=== PATIENT | male | born 1940 | race African-American/Black ===

== ENCOUNTER 2023-03-05 12:18 | Inpatient (IN) | payer MEDICARE ==
[2023-03-05 13:20] LABS: #Eosinphils 0.1 10x3/uL (0.0-0.5); #Monocytes 0.7 10x3/uL (0.0-1.1); #Neutrophils 3.1 10x3/uL (1.5-8.4); %Basophils 0.4 % (0.0-2.0); %Eosinophils 2.6 % (0.0-6.0); %Lymphocytes 24.6 % (18.0-47.0); %Monocytes 13.9 % (0.0-10.0); %Neutrophils 58.1 % (40.0-75.0); Hematocrit 29.5 % (38.8-50.0); Hemoglobin 9.2 g/dL (13.5-17.5); Mean Corpuscular HGB CONC 31.2 g/dL (32.0-36.0); Mean Corpuscular Hemoglobin 22.9 pg (27.0-33.0); Mean Corpuscular Volume 73.4 fl (81.2-95.1); Platelet Count 249 10x3/uL (150-450); Red Blood Cell (RBC) Count 4.02 10x6/uL (4.32-5.72); White Blood Cell (WBC) Count 5.3 10x3/uL (3.5-10.5)
[2023-03-05 13:40] LABS: ALT (SGPT) 7 U/L (8-55); AST (SGOT) 17 U/L (5-34); Albumin 2.6 g/dL (3.4-4.8); Alkaline Phosphatase 79 U/L (40-110); Anion Gap 11 mmol/L (10-20); BUN (Urea Nitrogen) 6 mg/dL (8.4-25.7); Bilirubin, Total 0.3 mg/dL (0.2-1.2); Calc. Creatinine Clearance 0 mL/min (70-130); Calcium 8.3 mg/dL (7.8-10.44); Carbon Dioxide 27 mmol/L (23-31); Chloride 98 mmol/L (98-107); Estimated GFR 89; Globulin 5.4 g/dL (2.4-3.5); Glucose 182 mg/dL (83-110); Magnesium 1.4 mg/dL (1.6-2.6); Potassium 3.4 mmol/L (3.5-5.1); Sodium 133 mmol/L (136-145)
[2023-03-05 13:47] LABS: Troponin I 0.013 ng/mL (< 0.028)
[2023-03-05 14:58] LABS: Microcytosis MODERATE=15-30 cells (100X) (0-5/hpf)
[2023-03-05] MEDS ORDERED: Potassium Chloride 20 MEQ TAB ONE (15:31)
[2023-03-05] MEDS ORDERED: Magnesium 2 GM/50 ML BAG (IN WATER) ONE (15:32)
[2023-03-05] MEDS ORDERED: Glucagon 1 MG/ML KIT IM PRN (16:19)
[2023-03-05] MEDS ORDERED: Dextrose 50% Abboject 50 ML SYRINGE SLOW IVP PRN (16:19)
[2023-03-05] MEDS ORDERED: Dextrose 5% in Water 1,000 ML IV PRN (16:19)
[2023-03-05] MEDS ORDERED: Guaifenesin DM 100-10/5 ML UDCUP PO PRN (16:19)
[2023-03-05] MEDS ORDERED: Cefepime 2 GM VIAL ONE ×2 (16:25→23:33)
[2023-03-05] MEDS ORDERED: Vancomycin HCl 500 MG VIAL ONE (16:25)
[2023-03-05] MEDS ORDERED: Vancomycin 1 GM VIAL ONE (16:25)
[2023-03-05] MEDS ORDERED: Sodium Chloride 0.9% 1,000 ML IV SCH (16:30)
[2023-03-05 18:33] LABS: Iron 31 ug/dL (65-175); Iron Binding Capacity, Total 190 mcg/dL (261-462)
[2023-03-05 18:35] VITALS: BMI 31.1
[2023-03-05] MEDS ORDERED: VANCOMYCIN 1.75 GM/350 ML BAG 1.75 GM in Premix 1 BAG IVPB SCH (20:00)
[2023-03-05 20:07] LABS: Bilirubin Neg (Negative); Blood, Urine 10 (Negative); Clarity Clear (Clear); Glucose, Urine (Dipstick) Normal (Negative); Ketone, Urine Negative (Negative); Leukocyte 500 (Negative); Nitrite Negative (Negative); Protein, Urine (Dipstick) 15 mg/dl (Neg-Trace); Specific Gravity, Urine 1.015 (1.005-1.030); Urobilinogen Normal mg/dL (Less than 2); pH, Urine 6.5 (5.0-9.0)
[2023-03-05 20:26] LABS: RBC/HPF 0-3 HPF (0-3)
[2023-03-05 20:27] LABS: Bacteria/HPF 2+ HPF (None Seen); CAUTI Indications for Culture Pelvic or flank pain; Squamous Epithelial 0-3 HPF (0-3)
[2023-03-05 20:28] LABS: Urine Culture Reflex Yes Yes
[2023-03-05] MEDS: Insulin Regular 300 UNITS/3 ML VIAL SC PRN (23:03)
[2023-03-05] MEDS ORDERED: Insulin Regular 300 UNITS/3 ML VIAL ONE (23:04)
[2023-03-05] MEDS: Cefepime 2 GM in Sodium Chloride 0.9% 100 ML IVPB SCH (23:39)
[2023-03-06 05:42] LABS: #Eosinphils 0.2 10x3/uL (0.0-0.5); #Monocytes 0.9 10x3/uL (0.0-1.1); #Neutrophils 3.2 10x3/uL (1.5-8.4); %Basophils 0.2 % (0.0-2.0); %Eosinophils 3.2 % (0.0-6.0); %Lymphocytes 23.6 % (18.0-47.0); %Monocytes 15.5 % (0.0-10.0); Hematocrit 29.8 % (38.8-50.0); Hemoglobin 9.2 g/dL (13.5-17.5); Mean Corpuscular HGB CONC 30.9 g/dL (32.0-36.0); Mean Corpuscular Hemoglobin 22.7 pg (27.0-33.0); Mean Corpuscular Volume 73.6 fl (81.2-95.1); Platelet Count 235 10x3/uL (150-450); Red Blood Cell (RBC) Count 4.05 10x6/uL (4.32-5.72); White Blood Cell (WBC) Count 5.7 10x3/uL (3.5-10.5)
[2023-03-06 05:51] LABS: Anion Gap 10 mmol/L (10-20); BUN (Urea Nitrogen) 6 mg/dL (8.4-25.7); Calc. Creatinine Clearance 123 mL/min (70-130); Calcium 8.3 mg/dL (7.8-10.44); Carbon Dioxide 27 mmol/L (23-31); Chloride 100 mmol/L (98-107); Estimated GFR 91; Glucose 120 mg/dL (83-110); Potassium 3.4 mmol/L (3.5-5.1); Sodium 134 mmol/L (136-145)
[2023-03-06 06:11] LABS: Microcytosis SLIGHT = 6-15 cells (100X) (0-5/hpf); Ovalocytes SLIGHT = 2-5 cells (100X) (0-1/hpf); Platelet Adequacy Comment Appears Adequate; Polychromasia SLIGHT = 2-3 cells (100X) (0-2/hpf); Tear Drops SLIGHT = 2-5 cells (100X) (0-1/hpf)
[2023-03-06] MEDS: Cefepime 2 GM in Sodium Chloride 0.9% 100 ML IVPB SCH ×2 (08:54→15:37)
[2023-03-06] MEDS: Ferrous Sulfate 325 MG TAB PO SCH (17:54)
[2023-03-06] MEDS: VANCOMYCIN 1.75 GM/350 ML BAG 1.75 GM in Premix 1 BAG IVPB SCH (17:54)
[2023-03-06] MEDS: Insulin Regular 300 UNITS/3 ML VIAL SC PRN (17:57)
[2023-03-07] MEDS: Cefepime 2 GM in Sodium Chloride 0.9% 100 ML IVPB SCH ×4 (01:32→23:01)
[2023-03-07] MEDS: Acetaminophen 325 MG TAB PO PRN ×3 (01:43→21:50)
[2023-03-07 05:31] LABS: #Eosinphils 0.3 10x3/uL (0.0-0.5); #Neutrophils 3.1 10x3/uL (1.5-8.4); %Basophils 0.5 % (0.0-2.0); %Eosinophils 5.1 % (0.0-6.0); %Lymphocytes 24.4 % (18.0-47.0); %Monocytes 16.6 % (0.0-10.0); %Neutrophils 53.2 % (40.0-75.0); Hematocrit 30.3 % (38.8-50.0); Hemoglobin 9.4 g/dL (13.5-17.5); Mean Corpuscular Hemoglobin 22.9 pg (27.0-33.0); Mean Corpuscular Volume 73.7 fl (81.2-95.1); Mean Platelet Volume 9.7 fl (7.4-10.4); Platelet Count 238 10x3/uL (150-450); RBC Distribution Width 16.3 % (11.5-14.5); Red Blood Cell (RBC) Count 4.11 10x6/uL (4.32-5.72); White Blood Cell (WBC) Count 5.7 10x3/uL (3.5-10.5)
[2023-03-07 05:41] LABS: ALT (SGPT) Less than 7 U/L (8-55); AST (SGOT) 11 U/L (5-34); Albumin 2.7 g/dL (3.4-4.8); Alkaline Phosphatase 82 U/L (40-110); Anion Gap 12 mmol/L (10-20); BUN (Urea Nitrogen) 5 mg/dL (8.4-25.7); Bilirubin, Total 0.5 mg/dL (0.2-1.2); CRP (Inflammatory) 5.98 mg/dL (= or < 0.5); Calc. Creatinine Clearance 113 mL/min (70-130); Calcium 8.4 mg/dL (7.8-10.44); Carbon Dioxide 25 mmol/L (23-31); Chloride 99 mmol/L (98-107); Estimated GFR 89; Globulin 4.9 g/dL (2.4-3.5); Glucose 141 mg/dL (83-110); Potassium 3.1 mmol/L (3.5-5.1); Protein, Total 7.6 g/dL (5.8-8.1); Sodium 133 mmol/L (136-145)
[2023-03-07 06:07] LABS: Hypochromia SLIGHT = 6-15 cells (100X) (0-5/hpf); Microcytosis SLIGHT = 6-15 cells (100X) (0-5/hpf); Platelet Adequacy Comment Appears Adequate
[2023-03-07] MEDS: Potassium Chloride 20 MEQ TAB PO SCH ×2 (09:40→12:58)
[2023-03-07] MEDS: Ferrous Sulfate 325 MG TAB PO SCH ×2 (09:40→16:51)
[2023-03-07] MEDS ORDERED: Metoprolol Tartrate 50 MG TAB PO SCH (09:45)
[2023-03-07] MEDS ORDERED: Amlodipine 10 MG TAB PO SCH (09:45)
[2023-03-07] MEDS ORDERED: Apixaban 5 MG TAB PO SCH (10:00)
[2023-03-07] MEDS: Insulin Regular 300 UNITS/3 ML VIAL SC PRN (12:59)
[2023-03-07 18:31] LABS: Vancomycin, Trough 13.7 ug/mL
[2023-03-07] MEDS: VANCOMYCIN 1.75 GM/350 ML BAG 1.75 GM in Premix 1 BAG IVPB SCH (18:40)
[2023-03-07] MEDS: Apixaban 5 MG TAB PO SCH (21:50)
[2023-03-07] MEDS: Gabapentin 100 MG CAP PO SCH (21:50)
[2023-03-07] MEDS: Metoprolol Tartrate 50 MG TAB PO SCH (21:50)
[2023-03-08 04:23] LABS: Anion Gap 12 mmol/L (10-20); BUN (Urea Nitrogen) 7 mg/dL (8.4-25.7); Calc. Creatinine Clearance 123 mL/min (70-130); Calcium 8.8 mg/dL (7.8-10.44); Carbon Dioxide 24 mmol/L (23-31); Chloride 100 mmol/L (98-107); Estimated GFR 91; Glucose 125 mg/dL (83-110); Magnesium 1.6 mg/dL (1.6-2.6); Potassium 4.1 mmol/L (3.5-5.1); Sodium 132 mmol/L (136-145)
[2023-03-08] MEDS: Cefepime 2 GM in Sodium Chloride 0.9% 100 ML IVPB SCH ×2 (08:48→17:54)
[2023-03-08] MEDS: Tamsulosin HCl 0.4 MG CAP PO SCH (08:49)
[2023-03-08] MEDS: Gabapentin 100 MG CAP PO SCH ×2 (08:49→20:58)
[2023-03-08] MEDS: Amlodipine 10 MG TAB PO SCH (08:49)
[2023-03-08] MEDS: Ferrous Sulfate 325 MG TAB PO SCH ×2 (08:50→17:56)
[2023-03-08] MEDS: Loratadine 10 MG TAB PO SCH (08:50)
[2023-03-08] MEDS: Apixaban 5 MG TAB PO SCH ×2 (08:51→20:57)
[2023-03-08] MEDS: Lantus 1000 UNITS/10 ML VIAL SC SCH (08:51)
[2023-03-08] MEDS: Metoprolol Tartrate 50 MG TAB PO SCH ×2 (09:00→20:57)
[2023-03-08] MEDS ORDERED: Magnesium 2 GM/50 ML(in water) 2 GM in Premix 1 BAG IVPB SCH (10:00)
[2023-03-08] MEDS ORDERED: Magnesium Sulfate/D5W 1 GM in Premix 1 BAG IVPB SCH (12:00)
[2023-03-08] MEDS: VANCOMYCIN 1.75 GM/350 ML BAG 1.75 GM in Premix 1 BAG IVPB SCH (18:46)
[2023-03-08] MEDS: Acetaminophen 325 MG TAB PO PRN (20:58)
[2023-03-09] MEDS: Cefepime 2 GM in Sodium Chloride 0.9% 100 ML IVPB SCH ×2 (00:33→09:19)
[2023-03-09 04:29] LABS: Anion Gap 13 mmol/L (10-20); BUN (Urea Nitrogen) 8 mg/dL (8.4-25.7); Calc. Creatinine Clearance 114 mL/min (70-130); Calcium 8.5 mg/dL (7.8-10.44); Carbon Dioxide 20 mmol/L (23-31); Chloride 101 mmol/L (98-107); Estimated GFR 89; Glucose 116 mg/dL (83-110); Potassium 3.7 mmol/L (3.5-5.1); Sodium 130 mmol/L (136-145)
[2023-03-09] MEDS ORDERED: Sodium Chloride 0.9% 1,000 ML IV SCH (09:00)
[2023-03-09] MEDS: Amlodipine 10 MG TAB PO SCH (09:15)
[2023-03-09] MEDS: Apixaban 5 MG TAB PO SCH (09:17)
[2023-03-09] MEDS: Gabapentin 100 MG CAP PO SCH (09:17)
[2023-03-09] MEDS: Loratadine 10 MG TAB PO SCH (09:19)
[2023-03-09] MEDS: Tamsulosin HCl 0.4 MG CAP PO SCH (09:19)
[2023-03-09] MEDS: Ferrous Sulfate 325 MG TAB PO SCH (09:19)
[2023-03-09] MEDS: Metoprolol Tartrate 50 MG TAB PO SCH (09:19)
[2023-03-09] MEDS: Lantus 1000 UNITS/10 ML VIAL SC SCH (09:53)
[2023-03-09 11:39] VITALS: BP 135/68; TEMP 97.7
[2023-03-09] MEDS ORDERED: Sodium Bicarbonate Tab 325 MG TAB PO SCH (15:00)
== END 2023-03-09 15:30 | DRG 592 ==
LOC: CSHERS 12:18 → CSHERHOLD 15:54 → CSHTELE 03-06 02:25
PROVIDERS: ADMIT Internal Medicine; ATTEND Internal Medicine
DX: L89.624 Pressure ulcer of left heel, stage 4 (principal); J18.9 Pneumonia, unspecified organism; N39.0 Urinary tract infection, site not specified; I50.42 Chronic combined systolic (congestive) and diastolic (congestive) heart failure; L89.152 Pressure ulcer of sacral region, stage 2; I11.0 Hypertensive heart disease with heart failure; N31.9 Neuromuscular dysfunction of bladder, unspecified; E11.9 Type 2 diabetes mellitus without complications; I25.10 Atherosclerotic heart disease of native coronary artery without angina pectoris; N40.0 Benign prostatic hyperplasia without lower urinary tract symptoms; B96.5 Pseudomonas (aeruginosa) (mallei) (pseudomallei) as the cause of diseases classified elsewhere; K21.9 Gastro-esophageal reflux disease without esophagitis; E87.6 Hypokalemia; E83.42 Hypomagnesemia; D50.9 Iron deficiency anemia, unspecified; E66.9 Obesity, unspecified; Z68.31 Body mass index [BMI] 31.0-31.9, adult; Z79.01 Long term (current) use of anticoagulants; Z88.5 Allergy status to narcotic agent; Z79.899 Other long term (current) drug therapy; Z79.4 Long term (current) use of insulin; Z87.891 Personal history of nicotine dependence; Z98.890 Other specified postprocedural states
CPT/HCPCS: 36415; 36416; 71045; 80048; 80053; 80202; 81001; 82607; 82728; 83540; 83550; 83735; 83880; 84484; 85025; 86140; 87040; 87077; 87086; 87186; 93005; 94760; 96361; 96365; 96366; 96367; 97139; J0692; J1815; J3370; J3475; J3490; J7050